=== PATIENT | female | born 1960 | race Caucasian/White ===

== ENCOUNTER 2016-06-20 16:59 | Emergency (ER) | payer SELFPAY ==
[~2016-06-20] VITALS: Ht 149.9 cm; Wt 89.7 kg
[~2016-06-20 16:59] MED LIST: BUSPAR5 MG PO
[2016-06-20] MEDS ORDERED: ZITHROMAX Z-PA250 MG PO (17:25)
[2016-06-20] MEDS ORDERED: MECLIZINE HCL25 MG PO (17:25)
[2016-06-20] MEDS ORDERED: ZOFRAN4 MG PO (17:25)
[2016-06-20 17:50] VITALS: BP 128/69
== END 2016-06-20 17:52 | disposition home or self-care (01) ==
LOC: EME 16:59
DX: H81.10 Benign paroxysmal vertigo, unspecified ear (principal); H66.91 Otitis media, unspecified, right ear; E78.5 Hyperlipidemia, unspecified; I10 Essential (primary) hypertension; Z87.891 Personal history of nicotine dependence
CPT/HCPCS: 99281; 99284